=== PATIENT | female | born 1965 | race Caucasian/White ===

== ENCOUNTER 2019-12-07 08:02 | Outpatient (CLI) | payer BC ==
[2019-12-07] MEDS ORDERED: Iopamidol 370 76% 100 ML VIAL ONE (08:39)
[2019-12-07] MEDS ORDERED: Iopamidol 370 76% 50 ML VIAL FS ONE (08:39)
[2019-12-07 09:03] LABS: Estimated GFR-MDRD - POC Greater than 90
--- NOTE | 2019-12-07 15:42 | CT ---
CT NECK WITH AND WITHOUT CONTRAST: (Parathyroid protocol) DATE: 12/07/2019 HISTORY: [id number] with hyperparathyroidism. TECHNIQUE: Precontrast scan, 25 seconds postcontrast scan, and 65 second postcontrast scan, from several centime ters inferior to the marshal to the skull base. Coronal and sagittal reconstructions. FINDINGS: There is a tiny 2 x 3 x 3 mm enhancing nodule abutting the right side of the upper esophagus at the T 1 level, posterior to the lower mid-pole of the right lobe of the thyroid gland (Axial image 53 of 214, series 3; 53 of 107, series 5; 54 of 107 series 2; coronal image 67 of 149, series 601; 67 of 14 8 series 604; sagittal image 89 of 180, series 602; 89 of 180 series 605).. Extending a short distance cranially from it, is a short blood vessel. It is uncertain whether this nodule is part of t he blood vessel or a parathyroid adenoma with prominent blood vessel leading to it. There is no significant increased uptake on the sestamibi scan. (Slightly caudal to this, there is a lymph node which should not be mistaken for this particular nodu le of interest). No definite pathology of the thyroid gland identified. Unremarkable larynx. IMPRESSION: Tiny 3 mm nodule abutting the right side of the upper esophagus, posterior to the right lobe of the t hyroid gland. Intermediate probability for parathyroid adenoma.
--- NOTE | 2019-12-07 16:15 | NM ---
Nuclear medicine parathyroid SPECT and scintigraphy: DATE: 12/07/2019 HISTORY: 54-year-old Female with hyperparathyroidism TECHNIQUE: IV injection of 23.5 mCi [id number] sestamibi. 3 view scintigraphic images of upper chest, neck, and head, immediately, at one hour, and 2 hours. SPECT in 3 planes from upper chest to skull base. Noncontrast CT from upper chest to skull base. SPECT-CT fusion. FINDINGS: Located a short caudal distance from the lower pole of the left lobe of the thyroid gland, there is a small focus of increased uptake, which is a good candidate for parathyroid adenoma. IMPRESSION: Good candidate for parathyroid adenoma slightly inferior to the lower pole of the left lobe of the th yroid gland.
== END 2019-12-07 08:03 | disposition home or self-care (01) ==
LOC: CT 08:02
PROVIDERS: ATTEND Internal Medicine Hematology & Oncology
DX: E21.2 Other hyperparathyroidism (principal); K22.8 Other specified diseases of esophagus; Z85.3 Personal history of malignant neoplasm of breast
CPT/HCPCS: 70492; 78072; 82565; A9500; Q9967

== ENCOUNTER 2022-03-20 08:20 | Outpatient (CLI) | payer BC | END 2022-03-20 08:21 | disposition home or self-care (01) | LOC: ULT 08:20 | PROVIDERS: ATTEND Physician Assistant Medical | DX: R10.13 Epigastric pain (principal); R11.2 Nausea with vomiting, unspecified | CPT/HCPCS: 76705 ==